=== PATIENT | female | born 1960 | race Caucasian/White ===

== ENCOUNTER → 2017-01-28 | Outpatient (CLI) | payer BC ==
[~2017-01-28] MED LIST: ALBU8.5H INH; CALC-52 PO; FEXO180T94 PO; IBUP1TAB14 PO; IMIP10TA5 PO; MULT-1175 PO; OMEP20CA10 PO; OXYB5TAB25 PO; PRAM0.75 PO; SIMV20TA6 PO; SUCR1ORA3 PO
--- NOTE | 2017-01-28 16:23 | DI ---
INDICATION: ITS.REASON: R07.9 CHEST PAIN PROCEDURE: CHEST 2-VIEWS UPRIGHT (PA \T\ LAT) Encounter: Initial COMPARISON: January 20, 2016 FINDINGS: The lungs are clear without evidence of focal abnormal airspace opacity. There is no pleural effusion or pneumothorax. The heart size, mediastinal contours and pulmonary vascularity are within normal limits. There is no significant skeletal abnormality. IMPRESSION: No acute cardiopulmonary disease. .
== END ==
LOC: IMA 15:34
PROVIDERS: ATTEND Family Medicine
DX: R07.9 Chest pain, unspecified (principal)
CPT/HCPCS: 36415; 82553; 84484; 93005

== ENCOUNTER → 2017-02-04 | Outpatient (CLI) | payer BC ==
[2017-02-04 17:33] LABS: BASOPHILS % (AUTO) 0.2 % (0-2); EOSINOPHILS # (AUTO) 0.2 T/MM3 (0-0.5); EOSINOPHILS % (AUTO) 1.6 % (0-4); HCT - HEMATOCRIT 37.8 % (36-46); HGB - HEMOGLOBIN 12.1 GM/DL (12-16); IMMATURE GRANULOCYTE # (AUTO) 0.01 T/MM3 (0.00-0.03); IMMATURE GRANULOCYTE % (AUTO) 0.1 % (0.0-0.5); LYMPHOCYTES % (AUTO) 41.9 % (23-45); MEAN CORPUSCULAR HGB 25.4 UUG (26-34); MEAN CORPUSCULAR VOLUME 79.4 UM3 (80-100); MEAN PLATELET VOLUME 11.5 UM3 (9.4-12.4); MONOCYTES # (AUTO) 0.6 T/MM3 (0-0.8); NEUTROPHILS #(AUTO)-ABSOLUTE 4.8 T/MM3 (1.8-7.7); NEUTROPHILS % (AUTO) 50.2 % (33-66); RED BLOOD COUNT 4.76 M/MM3 (4.00-5.20); WBC - WHITE BLOOD COUNT 9.6 T/MM3 (4.5-11.0)
[2017-02-04 17:41] LABS: ANION GAP 13 MEQ/L (5-15); BUN/CREATININE RATIO 16 RATIO (6-26); CHLORIDE 106 MEQ/L (98-107); CO2 - CARBON DIOXIDE 28 MEQ/L (22-30); GLOMERULAR FILTRATION RATE 57; GLUCOSE 93 MG/DL (65-110); POTASSIUM 4.4 MEQ/L (3.6-5); SODIUM 147 MEQ/L (134-144)
[2017-02-04 17:42] LABS: ALBUMIN 4.3 G/DL (3.5-5.0); ALBUMIN/GLOBULIN RATIO 1.2 RATIO (1.1-2.2); ALKALINE PHOSPHATASE 87 U/L (38-126); ALT (SGPT) 29 U/L (9-52); AST (SGOT) 21 U/L (14-36); CALCIUM 10.1 MG/DL (8.4-10.2); LIPASE 62 U/L (23-300); TOTAL PROTEIN 7.9 G/DL (6.3-8.2)
== END ==
LOC: LAB 17:17
PROVIDERS: ATTEND Family Medicine
DX: R10.9 Unspecified abdominal pain (principal)
CPT/HCPCS: 36415; 80053; 82150; 83690; 85025

== ENCOUNTER → 2017-02-20 | Outpatient (CLI) | payer BC ==
[~2017-02-20] MED LIST changes: +IOHEXOL 300 MG/ML 100ml INJECTION ONE; +NORMAL SALINE 100 ML ONE; +SALINE FLUSH 10ml SYRINGE ONE
--- NOTE | 2017-02-20 17:17 | DI ---
EXAM: CT ABD/PELVIS W/CONTRAST ONLY COMPARISON: None available. HISTORY: ITS.REASON: R10.9 USPECIFIED ABDOMINAL PAIN [place] [facility] [place] Axial images were obtained from the domes of the diaphragms to the ischial tuberosities with administration of 89 mL Omnipaque 300 contrast. The study was reconstructed into thinner axial sections and in coronal and sagittal reformations. Study is reviewed in lung, soft tissue, bone and liver windows. The current CT scan was performed using radiation dose-reduction techniques. ABDOMEN AND PELVIS FINDINGS: LUNG BASES: Mild dependent atelectatic changes. HEART: Unremarkable. No significant pericardial effusion. LIVER: Small less than 1 cm hypodensities are seen in the right lobe of the liver which are too small to characterize but could represent cysts. There is a 1.2 cm and a 1.5 cm hypodense lesion one in the right lobe and one in the medial segment of left lobe of the liver which likely represent cysts as well. GALLBLADDER: The gallbladder is surgically absent with surgical clips seen in the gallbladder fossa. SPLEEN: Unremarkable. PANCREAS: Unremarkable. ADRENAL GLANDS: Unremarkable. AORTA/IVC/VASCULATURE: Unremarkable. LYMPH NODES: No lymphadenopathy is identified. Small lymph nodes are noted, but are not pathologically enlarged. GENITOURINARY: Unremarkable. No renal calculi or obstructive uropathy. The bladder and ureters appear unremarkable. The kidneys perfuse symmetrically. BOWEL: There is a small to moderate amount of stool seen throughout the colon. Moderate amount to large amount of stool seen within the ascending and transverse colon. The terminal ileum and appendix appear unremarkable. The small bowel is unremarkable. The duodenum is unremarkable. The stomach awan are thickened but may be due to nondistention rather than gastritis. No free intraperitoneal air or fluid is identified. ABDOMINAL/PELVIC WALL: Small umbilical defect without herniated loops of bowel. There may inguinal hernia defects without herniated loops of bowel. BONES: Facet hypertrophic changes are seen of the lower lumbar spine. IMPRESSION: 1. Hypodense lesions are seen within the liver, some of which are too small to characterize, but the larger ones likely represent cysts. 2. Status post cholecystectomy without intra or intrahepatic ductal dilatation. 3. Otherwise unremarkable exam. .
== END ==
LOC: IMA 09:52
PROVIDERS: ATTEND Family Medicine
DX: K76.89 Other specified diseases of liver (principal); Z90.49 Acquired absence of other specified parts of digestive tract; R10.33 Periumbilical pain
CPT/HCPCS: 74177; J7050; Q9967